=== PATIENT | male | born 1950 | race Caucasian/White ===

== ENCOUNTER → 2021-05-25 09:50 | Outpatient (CLI) | payer MEDICARE, SELFPAY ==
[2021-05-25 13:39] LABS: COVID19 -Nasal RAPID Negative (Negative)
== END ==
PROVIDERS: Referring Provider Internal Medicine; Visit Provider Internal Medicine
DX: Z20.822 Contact with and (suspected) exposure to COVID-19 (principal)
CPT/HCPCS: 87635

== ENCOUNTER → 2021-05-25 09:55 | Outpatient (CLI) | payer MEDICARE, SELFPAY ==
--- NOTE | 2021-05-30 08:43 | PM.PFT.1 ---
Pulmonary Function Test Referral & Results Date Patient Seen: 05/25/21 Requesting provider: Jc Martinez Results: The spirometry demonstrates an FVC of 5.19 L which is 100% of predicted. The FEV1 was measured at 3.94 L which is 103% of predicted. The FEV1/FVC ratio was 76 which is 102% of predicted. Following the administration of bronchodilator there was no appreciable change to above normal numbers Lung volumes show an SVC of 4.99 L which is 96% of predicted. The diffusing capacity was measured at 35.64 which is 94% of predicted. The maximum voluntary ventilation was normal Interpretation: This study demonstrates normal pulmonary function
== END ==
PROVIDERS: Referring Provider Family Medicine; Visit Provider Family Medicine
DX: R05.3 Chronic cough (principal); Z20.822 Contact with and (suspected) exposure to COVID-19
CPT/HCPCS: 87635; 94060; 94726; 94729; C9803

== ENCOUNTER → 2024-01-19 10:02 | Outpatient (CLI) | payer MEDICARE, SELFPAY ==
--- NOTE | 2024-01-19 | DI.NM.S_ITS ---
PROCEDURE: NM BARBER PERF SPECT REST & STR Rest and exercise myocardial perfusion SPECT with gated imaging and ejection fraction RADIOPHARMACEUTICAL: 10.9 mCi Tc-99m sestamibi IV at rest and 15.7 mCi Tc-99m sestamibi IV at peak exercise. A one day-protocol was performed. INDICATIONS: Atherosclerotic heart disease of [place] coronary artery with TECHNIQUE: Radiopharmaceutical was injected at peak stress test, and also at rest. SPECT images were obtained. SPECT myocardial perfusion images were displayed in short axis, horizontal long axis, and vertical long axis views. Gated images were reviewed using DPSI software. COMPARISON: None. CARDIAC STRESS: A standard Ruben treadmill exercise tolerance test was performed by the patient under the supervision of an attending staff. The patient exercised for 4 minutes and 33 seconds; functional aerobic impairment (ANTONIO) is +26%. Hemodynamic data: There is normal blood pressure and heart rate response to exercise stress. Patient achieved 102% of maximum predicted heart rate at peak exercise. Symptoms: Patient denied chest pain during exercise. EKG: No diagnostic EKG changes of ischemia; no ectopy. FINDINGS: Raw data: There is good myocardial labeling by radiotracer. No significant motion artifacts. Left ventricle function: Gated images demonstrate normal left ventricle wall thickening. No segmental wall motion abnormality. No transient ischemic dilation; TID is 1.01 (normal less than 1.3). The left ventricle resting end-diastolic volume is 127mL. Left ventricle stress ejection fraction is 66%; normal values are above 45%. Myocardial perfusion: No fixed or reversible perfusion defects based on stress prone images. IMPRESSION: Low risk, normal treadmill nuclear stress test 1) No perfusion evidence of ischemia or infarction. 2) Normal left ventricular size, wall motion, and systolic function (EF post stress 66%). 3) No diagnostic ST changes during exercise or recovery. 4) No angina during the study. 5) Mildly reduced exercise tolerance (7.0METs, ANTONIO +26%). Target heart rate reached. Appropriate BP response to exercise. 6) No prior nuclear stress test available for comparison. Dictated by: Yazmin Doherty MD on 01/20/2024 at 16:56 Approved by: Yazmin Doherty MD on 01/20/2024 at 16:59
== END ==
PROVIDERS: PCP Family Medicine; Referring Provider Family Medicine; Visit Provider Family Medicine
DX: I25.10 Atherosclerotic heart disease of native coronary artery without angina pectoris (principal); I25.84 Coronary atherosclerosis due to calcified coronary lesion
CPT/HCPCS: 78452; 93017; A9502